=== PATIENT | male | born 1950 | race American Indian/Alaskan Native ===

== ENCOUNTER 2017-05-01 12:56 | Emergency (ER) | payer BC ==
[2017-05-01 12:56] VITALS: BMI 32.1
[2017-05-01 13:05] VITALS: RESP 18; TEMP 98.7; O2SAT 98
--- NOTE | 2017-05-01 13:57 | ED PDOC ---
Arrival/HPI - General Chief Complaint: GI Problem Time Seen by Provider: 05/01/17 13:27 Historian: Patient - History of Present Illness Narrative History of Present Illness (Text): The patient si a 66yo male with past medical history of diabetes controlled with Metformin, presents to the emergency department for evaluation of hiccups present for the past 4 days. Patient reports one episode of associated vomiting 4 days ago; reports he has been able to tolerate PO intake and at present is asymptomatic. He denies any new nausea, vomiting, diarrhea, chest pain, shortness of breath, abdominal pain. Pt offers no additional medical complaints. PCP: Dr. Power Time/Duration: < week (4 days) Symptom Onset: Gradual Past Medical History - Provider Review Nursing Documentation Reviewed: Yes - Infectious Disease Hx of Infectious Diseases: None - Cardiac Hx Hypertension: Yes - Endocrine/Metabolic Hx Diabetes Mellitus Type 2: Yes - Psychiatric Hx Depression: No Hx Emotional Abuse: No Hx Physical Abuse: No Hx Substance Use: No - Surgical History Hx Coronary Stent: Yes (x2 in 2004) - Anesthesia Hx Anesthesia: Yes Hx Anesthesia Reactions: No Hx Malignant Hyperthermia: No - Suicidal Assessment Feels Threatened In Home Enviroment: No Family/Social History - Physician Review Nursing Documentation Reviewed: Yes Family/Social History: Unknown Family HX Smoking Status: Never Smoked Hx Alcohol Use: Yes Hx Substance Use: No Hx Substance Use Treatment: No Allergies/Home Meds Allergies/Adverse Reactions: Allergies No Known Allergies Allergy (Verified 05/01/17 13:02) Home Medications: Home Meds Medication Instructions Recorded Confirmed Atorvastatin Calcium [Lipitor] 1 tab PO DAILY 07/27/15 05/01/17 Metoprolol Succinate [Toprol XL] 1 tab PO BID 07/27/15 05/01/17 Olmesartan/Hydrochlorothiazide 1 tab PO DAILY 07/27/15 05/01/17 [Benicar Hct 25 mg-40 mg] Aspirin/Calcium Carbonate/Mag 325 mg PO DAILY 05/01/17 05/01/17 [Aspirin Buffered 325 mg Tab] Calcium Carbonate/Vitamin D3 1 each PO DAILY 05/01/17 05/01/17 [Calcium 1,000 + D3 Caplet] Exenatide Microspheres [Bydureon] 2 mg SC DAILY 05/01/17 05/01/17 Metformin HCl [Metformin HCl ER] 500 mg PO DAILY 05/01/17 05/01/17 Milk Thistle Seed Extract [Milk 200 mg PO DAILY 05/01/17 05/01/17 Thistle] Pantoprazole Sodium [Protonix] 40 mg PO DAILY 05/01/17 05/01/17 Review of Systems - Physician Review All systems were reviewed & negative as marked: Yes Physical Exam - Physical Exam Narrative Physical Exam (Text): - Review of Systems Constitutional: Normal. absent: Fatigue, Weight Change, Fevers Eyes: Normal ENT: Normal Respiratory: Normal absent: SOB, Cough, Sputum Cardiovascular: Normal absent: Chest pain, Palpitations, Syncope Gastrointestinal: Hiccups present for past 4 days, asymptomatic at present. absent: Abdominal pain, Diarrhea, Nausea, Vomiting Musculoskeletal: Normal. absent: Arthralgias, Back Pain, Neck Pain Skin: Normal Neurological: Normal absent: Focal Weakness Endocrine: Normal Hemo/Lymphatic: Normal Psychiatric: Normal - Physical exam Patient appears age appropriate, speaking full sentences without difficulty - Systems Exam Head: Present: Atraumatic, Normocephalic Pupils: Present: PERRL Extraocular Muscles: Present: EOMI Conjunctiva: Present: Normal Mouth: Present: Moist Mucous Membranes Neck: Present: Normal Range of Motion. No: MIDLINE TENDERNESS, Paraspinal Tenderness Respiratory/Chest: Present: Clear to Auscultation, Good Air Exchange. No: Respiratory Distress, Accessory Muscle Use, Tachypnic Cardiovascular: Present: Regular Rate and Rhythm, Normal S1, S2, Peripheral Pulses Present. No: Murmurs Abdomen: Present: Normal Bowel Sounds, No: Tenderness, Peritoneal Signs, Rebound, Guarding, Distention Back: Present: Normal Inspection. No: Midline Tenderness, Paraspinal Tenderness Upper Extremity: Present: Normal Inspection. No: Cyanosis, Edema Lower Extremity: Present: Normal Inspection. No: Edema Neurological: Present: GCS=15, Speech Normal, cranial nerves II through XII fully intact with no cerebellar abnormality, neuro-sensory fully intact. No focal neurological deficits. Skin: Present: Warm, Dry, Normal Color. No: Rashes Lymphatic: Present: OX3, NI, NC Psychiatric: Present: Alert, Oriented x 3, Normal Insight, Normal Concentration Vital Signs Temp Pulse Resp BP Pulse Ox 05/01/17 16:15 75 18 138/68 98 05/01/17 15:00 79 18 142/71 98 05/01/17 13:04 98.7 F 87 18 144/76 98 Medical Decision Making ED Course and Treatment: Plan: -- [address] Power, awaiting call back -- Reassess and disposition Prior Visits: Notes and results from previous visits were reviewed. Patient was last seen in the emergency department on 07/27/15 for a facial abrasion and was discharged home. Progress Notes: 05/01/17 14:[address] Power who will see the patient in the emergency department. 05/01/17 15:48 seen and examined by Dr. Aden asked to provide Rx for Reglan 5mg and dc home pt currently asymptomatic, denies hiccups Patient's repeat abdominal exam is soft, nontender, non distended with positive bowel sounds in all 4 quadrants and no peritoneal signs. Patient is tolerating PO without any difficulty. Pt states he understands to return to the ER right away for new or worsening symptoms or for inability to f/u with PMD or specialist as instructed. Patient states that he fully agrees with and understands discharge instructions. States that he agrees with the plan and disposition. Verbalized and repeated discharge instructions and plan. I have given the patient opportunity to ask any additional questions. - EKG Interpretation EKG Interpretation (Text): EKG: Ordered, reviewed, and independently interpreted the EKG. Rate : 82 BPM Rhythm : NSR Interpretation : No ST-segment elevations, normal axis, normal intervals. Interpreted by me. Comparison : No previous EKG for comparison. Interpreted by ED Physician: Yes - Medication Orders Current Medication Orders: Discontinued Medications Diphenhydramine HCl (Benadryl) 50 mg PO STAT STA Stop: 05/01/17 14:33 Last Admin: 05/01/17 14:51 Dose: 50 mg Metoclopramide HCl (Reglan) 10 mg IM STAT STA Stop: 05/01/17 14:32 Last Admin: 05/01/17 14:51 Dose: 10 mg - Scribe Statement The provider has reviewed the documentation as recorded by the Emma Warner Provider Scribe Attestation: All medical record entries made by the Emma were at my direction and personally dictated by me. I have reviewed the chart and agree that the record accurately reflects my personal performance of the history, physical exam, medical decision making, and the department course for this patient. I have also personally directed, reviewed, and agree with the discharge instructions and disposition. Disposition/Present on Arrival - Present on Arrival Any Indicators Present on Arrival: No History of DVT/PE: No History of Uncontrolled Diabetes: Yes Urinary Catheter: No History of Decub. Ulcer: No History Surgical Site Infection Following: None - Disposition Have Diagnosis and Disposition been Completed?: Yes Diagnosis: Hiccups Disposition: HOME/ ROUTINE Disposition Time: 15:51 Patient Plan: Discharge Condition: GOOD Discharge Instructions (ExitCare): Hiccups (ED) Additional Instructions: PLEASE RETURN TO THE EMERGENCY DEPARTMENT FOR NEW OR WORSENING SYMPTOMS. RETURN RIGHT AWAY IF YOU CANNOT FOLLOW UP WITH YOUR PRIMARY CARE DOCTOR, CLINIC, OR SPECIALIST IN 1-2 DAYS. Prescriptions: Metoclopramide [Reglan] 5 mg PO BID PRN #12 tab PRN Reason: Hiccups Referrals: Kasie Power MD [Primary Care Provider] - Follow up with primary
[2017-05-01 16:21] VITALS: BP 138/68; PULSE 75
--- NOTE | 2017-05-01 20:33 | CARD ---
APPROVED REPORT EKG Measurement Heart [id number] <Conclusion> Normal sinus rhythm Inferior infarct, age undetermined Abnormal ECG
== END 2017-05-01 16:24 | disposition home or self-care (01) ==
LOC: ED 12:56
DX: R06.6 Hiccough (principal)
CPT/HCPCS: 93005; 96372; 99283; J2765